=== PATIENT | female | born 1960 | race Caucasian/White ===

== ENCOUNTER → 2019-11-11 14:03 | Outpatient (CLI) | payer OTHER, SELFPAY ==
--- NOTE | 2019-11-11 | DI.US.S_ITS ---
PROCEDURE: US ABDOMEN COMPLETE INDICATIONS: HEMANGIOMA OF INTRA-ABDOMINAL STRUCTURES TECHNIQUE: Real-time scanning was performed of the abdominal and retroperitoneal organs, with image documentation. COMPARISON: None. FINDINGS: Liver: Liver is normal in size and homogeneous in echotexture. Left hepatic lobe is 12 mm. Solitary rounded echogenic focus within the anterior right hepatic lobe likely a subcentimeter hemangioma. Gallbladder: Multiple gallbladder polyps, largest measuring 6 mm. Gallbladder wall upper limits of normal measuring 3.1 mm. Negative sonographic Forman sign. Biliary ducts: Intrahepatic bile ducts are non-dilated. Extrahepatic bile duct caliber measures 4.1 mm. Normal is 6-7 mm or less in diameter, or 10 mm or less post-cholecystectomy. Pancreas: Visualized portions of the pancreas are sonographically normal. Spleen: Spleen is normal in size and homogeneous in echotexture. Kidneys: Kidneys are normal in size and echotexture. Right kidney measures 10.7 cm long; left kidney measures 10.9 cm long. No hydronephrosis or nephrolithiasis. No solid masses. Aorta: Visualized aorta is normal in caliber at less than 3 cm. Iliacs: Proximal common iliac arteries are normal in caliber at less than 2.5 cm. IVC: Intrahepatic inferior vena cava is patent. Miscellaneous: No free abdominal fluid. IMPRESSION: 1. Left hepatic lobe cyst and probable subcentimeter right hepatic lobe cavernous hemangioma. Recommend 6 month followup ultrasound to document temporal stability and/or changes. 2. Multiple gallbladder polyps the largest measuring 6 mm. Given the small size, no followup is warranted. Dictated by: Bryce Maria [facility] Interpreted: Darron Noel MD on 11/11/2019 at 15:18 Approved by: Darron Noel M.D. on 11/14/2019 at 14:25
== END ==
PROVIDERS: Referring Provider Internal Medicine; Visit Provider Internal Medicine
DX: D18.03 Hemangioma of intra-abdominal structures (principal); K82.4 Cholesterolosis of gallbladder; K76.89 Other specified diseases of liver
CPT/HCPCS: 76700

== ENCOUNTER → 2024-09-06 14:31 | Outpatient (CLI) | payer OTHER, SELFPAY ==
--- NOTE | 2024-09-06 14:33 | DI.US.S_ITS ---
PROCEDURE: US RENAL COMPLETE INDICATIONS: MICROSCOPIC HEMATURIA TECHNIQUE: Real-time scanning was performed of the kidneys and bladder, with image documentation. COMPARISON: None. FINDINGS: Kidneys: Kidneys are normal in size. Right kidney measures 9.9 cm long; left kidney measures 10.4 cm long. Right renal cortical thickness is 1.4 cm; left renal cortical thickness is 1.2 cm. Renal cortical echotexture is normal. No hydronephrosis or nephrolithiasis. No suspicious solid mass lesions. Bladder: Pre-void bladder volume is 89 mL. Post-void residual is 0 mL. Pre-void images demonstrate no intraluminal masses or stones. On pre-void images, bilateral ureteral jets are noted with color Doppler interrogation. (Of note, ureteral jets may not be detectable in up to 25% of cases due to insufficient differences in specific gravity between ureteral and bladder urine). Miscellaneous: No free pelvic fluid. IMPRESSION: 1. No nephrolithiasis or hydronephrosis. 2. Postvoid residual volume of 0 mL. Approved by: Consuelo Nolasco M.D.,Ph.D. on 09/08/2024 at 7:17
== END ==
PROVIDERS: PCP Family Medicine; Referring Provider Family Medicine; Visit Provider Family Medicine
DX: N40.1 Benign prostatic hyperplasia with lower urinary tract symptoms (principal); R31.29 Other microscopic hematuria
CPT/HCPCS: 76770